=== PATIENT | male | born 1945 | race Asian ===

== ENCOUNTER 2020-05-22 14:08 | Inpatient (IN) | payer OTHER, SELFPAY ==
[~2020-05-22] VITALS: Ht 167.6 cm; Wt 68.0 kg
[2020-05-22] MEDS: ALBUTEROL MDI INHALATION 8 GM INH INH SCH (00:30)
[2020-05-22 14:19] VITALS: BP_SYST 173
[2020-05-22 15:14] LABS: BASOPHILS % (AUTO) 0.2 % (0.0-2.0); HEMATOCRIT 38.2 % (36-54); HEMOGLOBIN 12.4 g/dL (14.0-18.0); LYMPHOCYTES # (AUTO) 0.6 K/uL (1.0-5.5); LYMPHOCYTES % (AUTO) 4.3 % (20.5-51.5); MEAN CORPUSCULAR HEMOGLOBIN 30 pg (27-31); MEAN CORPUSCULAR HGB CONC 33 % (32-36); MEAN CORPUSCULAR VOLUME 91 fL (79.0-98.0); MONOCYTES % (AUTO) 7.8 % (1.7-9.3); NEUTROPHILS # (AUTO) 11.7 K/uL (1.8-7.7); NEUTROPHILS % (AUTO) 87.7 % (40.0-70.0); PLATELET COUNT (AUTO) 359 K/uL (130-430); RED CELL DISTRIBUTION WIDTH 13.8 % (9.0-15.0); WHITE BLOOD COUNT (AUTO) 13.3 K/uL (4.8-10.8)
[2020-05-22 15:20] LABS: ANION GAP 15 (5-15); CALCIUM 8.4 mg/dL (8.4-11.0); CHLORIDE 105 mmol/L (98-107); CREATININE 3.12 mg/dL (0.55-1.30); GLUCOSE 234 mg/dL (70-99); POTASSIUM 4.8 mmol/L (3.5-5.1); SODIUM SERUM 137 mmol/L (136-145); UREA NITROGEN, BLOOD 67 mg/dL (8-21)
[2020-05-22 15:24] LABS: PROTHROMBIN TIME 10.7 SECS (9.5-12.5)
[2020-05-22 15:26] LABS: ALANINE AMINOTRANSFERASE 225 U/L (12-78); ALBUMIN 2.2 g/dL (3.4-4.8); ASPARTATE AMINOTRANSFERASE 192 U/L (10-37); LACTATE DEHYDROGENASE 820 U/L (85-227); TOTAL BILIRUBIN 1.4 mg/dL (0.0-1.0)
[2020-05-22 16:04] LABS: CKMB RELATIVE INDEX 3.1 (0.0-2.9); CREATINE KINASE MB 25.4 ng/mL (0-3.6)
[2020-05-22] MEDS ORDERED: ASPIRIN 81 MG TAB.CHEW PO ONE (16:15)
[2020-05-22] MEDS ORDERED: HEPARIN SODIUM,PORCINE 5,000 UNITS/ML VIAL IVP ONE (16:30)
[2020-05-22] MEDS ORDERED: DEXAMETHASONE SOD PHOSPHATE 4 MG/ML VIAL IVP ONE (16:30)
[2020-05-22] MEDS ORDERED: HEPARIN 25,000 UNITS/D5W 250ML 250 ML IV ONE (16:30)
[2020-05-22 17:19] LABS: C-REACTIVE PROTEIN QUANT 28.5 mg/dL (0-0.5)
[2020-05-22] MEDS ORDERED: FINA5TAB3 PO (17:41)
[2020-05-22] MEDS ORDERED: LABE200T28 PO (17:41)
[2020-05-22] MEDS ORDERED: HYDR-4039 PO (17:41)
[2020-05-22] MEDS ORDERED: GLUXR500 PO (17:41)
[2020-05-22] MEDS ORDERED: ISOS120T8 PO (17:41)
[2020-05-22] MEDS ORDERED: ASPI-1155 PO (17:41)
[2020-05-22] MEDS ORDERED: LIP10 PO (17:41)
[2020-05-22] MEDS ORDERED: LOSA100T3 PO (17:41)
[2020-05-22] MEDS ORDERED: VITD400 PO (17:41)
[2020-05-22] MEDS ORDERED: VERA120C2 PO (17:41)
[2020-05-22] MEDS ORDERED: CAT.2 PO (17:41)
[2020-05-22] MEDS ORDERED: INSULIN LISPRO SLIDING SCALE 100 UNITS/ML VIAL (humaLOG) SUBCUT PRN (17:45)
[2020-05-22] MEDS ORDERED: ACETAMINOPHEN 325 MG TABLET PO PRN (18:45)
[2020-05-22] MEDS ORDERED: NITROGLYCERIN 1 INCH (GM) OINT. TP ONE (18:45)
[2020-05-22] MEDS ORDERED: cefTRIAXone 1 GM VIAL ONE (19:29)
[2020-05-22] MEDS: cefTRIAXone 1 GM in D5W 50 ML IV SCH (19:32)
[2020-05-22] MEDS: AZITHROMYCIN 500 MG in NS 250 ML IV SCH (19:48)
[2020-05-22] MEDS: VERAPAMIL HCL 120 MG TABLET.SA PO SCH (19:49)
[2020-05-22] MEDS: ASCORBIC ACID 500 MG TABLET PO SCH (19:54)
[2020-05-22] MEDS: 0.45% NACL 1,000 ML IV SCH (19:56)
[2020-05-23 01:41] VITALS: BP_SYST 142
[2020-05-23] MEDS: 0.45% NACL 1,000 ML IV SCH ×2 (07:28→21:26)
[2020-05-23 08:28] LABS: BASOPHILS % (AUTO) 0.3 % (0.0-2.0); HEMATOCRIT 34.7 % (36-54); HEMOGLOBIN 11.3 g/dL (14.0-18.0); LYMPHOCYTES # (AUTO) 0.6 K/uL (1.0-5.5); LYMPHOCYTES % (AUTO) 4.2 % (20.5-51.5); MEAN CORPUSCULAR HEMOGLOBIN 29 pg (27-31); MEAN CORPUSCULAR HGB CONC 33 % (32-36); MEAN CORPUSCULAR VOLUME 90 fL (79.0-98.0); MONOCYTES # (AUTO) 0.9 K/uL (0.0-1.0); NEUTROPHILS # (AUTO) 13.3 K/uL (1.8-7.7); NEUTROPHILS % (AUTO) 89.5 % (40.0-70.0); PLATELET COUNT (AUTO) 373 K/uL (130-430); RED BLOOD CELL COUNT(AUTO) 3.86 MIL/uL (4.2-6.2); RED CELL DISTRIBUTION WIDTH 13.9 % (9.0-15.0); WHITE BLOOD COUNT (AUTO) 14.9 K/uL (4.8-10.8)
[2020-05-23] MEDS: ALBUTEROL MDI INHALATION 8 GM INH INH SCH ×3 (08:47→19:35)
[2020-05-23 08:49] LABS: ANION GAP 19 (5-15); CALCIUM 7.9 mg/dL (8.4-11.0); CHLORIDE 109 mmol/L (98-107); CREATININE 2.97 mg/dL (0.55-1.30); GLUCOSE 175 mg/dL (70-99); POTASSIUM 4.7 mmol/L (3.5-5.1); SODIUM SERUM 142 mmol/L (136-145); UREA NITROGEN, BLOOD 78 mg/dL (8-21)
[2020-05-23] MEDS ORDERED: FAMOTIDINE 20 MG TABLET PO SCH (09:00)
[2020-05-23] MEDS ORDERED: ATORVASTATIN 10 MG TABLET PO SCH (09:00)
[2020-05-23] MEDS ORDERED: ASPIRIN 81 MG TAB.CHEW PO SCH (09:00)
[2020-05-23] MEDS ORDERED: LOSARTAN POTASSIUM 50 MG TABLET (COZAAR) PO SCH (09:00)
[2020-05-23] MEDS ORDERED: CHOLECALCIFEROL (VITAMIN D3) 5,000 UNIT TABLET PO SCH (09:00)
[2020-05-23] MEDS ORDERED: FINASTERIDE 5 MG TABLET (PROSCAR) PO SCH (09:00)
[2020-05-23 09:03] LABS: ALANINE AMINOTRANSFERASE 179 U/L (12-78); ASPARTATE AMINOTRANSFERASE 111 U/L (10-37); LACTATE DEHYDROGENASE 666 U/L (85-227); THYROID STIMULATING HORMONE 0.81 uIu/mL (0.36-3.74); TOTAL BILIRUBIN 0.5 mg/dL (0.0-1.0)
[2020-05-23] MEDS ORDERED: METOPROLOL TARTRATE 25 MG TABLET ONE ×2 (10:22→14:01)
[2020-05-23] MEDS ORDERED: ASPIRIN 81 MG TAB.CHEW ONE (10:23)
[2020-05-23] MEDS ORDERED: DECADRON 4 MG TABLET PO ONE (10:30)
[2020-05-23] MEDS: ASCORBIC ACID 500 MG TABLET PO SCH ×2 (11:00→21:25)
[2020-05-23] MEDS: METOPROLOL TARTRATE 50 MG TABLET PO SCH ×2 (11:00→21:25)
[2020-05-23] MEDS: VERAPAMIL HCL 120 MG TABLET.SA PO SCH ×2 (11:00→21:25)
[2020-05-23 11:38] LABS: CLARITY/URINE HAZY (CLEAR); COLOR,URINE YELLOW (YELLOW); GLUCOSE,URINE NEGATIVE (NEGATIVE); KETONES,URINE NEGATIVE (NEGATIVE); PH,URINE 5.5 (5.0-8.0); PROTEIN URINE 3+ (NEGATIVE)
[2020-05-23 11:39] LABS: BACTERIA,URINE FEW /HPF (None Seen); BILIRUBIN,URINE NEGATIVE (NEGATIVE); BLOOD, URINE 2+ (NEGATIVE); LEUKOCYTE ESTERASE ,URINE NEGATIVE (NEGATIVE); NITRITE, URINE NEGATIVE (NEGATIVE); UROBILINOGEN,URINE 0.2 (0.2-1.0)
[2020-05-23 11:40] LABS: HYALINE CASTS, URINE 0-10 /LPF (None Seen); MUCUS,URINE 1+ /LPF (None Seen)
[2020-05-23 12:22] LABS: C-REACTIVE PROTEIN QUANT 20.5 mg/dL (0-0.5)
[2020-05-23] MEDS ORDERED: IVERMECTIN 3 MG TABLET PO ONE (13:15)
[2020-05-23] MEDS ORDERED: *HEPARIN PER PHARMACY XX ONE (13:15)
[2020-05-23] MEDS ORDERED: HEPARIN SODIUM,PORCINE 2000 UNITS/0.4 ML BOLUS IVP PRN (13:30)
[2020-05-23] MEDS ORDERED: HEPARIN SODIUM,PORCINE 3000 UNITS/0.6 ML BOLUS IVP PRN (13:30)
[2020-05-23] MEDS ORDERED: METOPROLOL SUCCINATE 50 MG TAB.SR.24H (TOPROL XL) PO ONE (14:04)
[2020-05-23] MEDS: HEPARIN 25,000 UNITS in 250 ML PREMIX IV PRN (15:09)
[2020-05-23] MEDS ORDERED: hydrALAZINE HCL 25 MG TABLET PO PRN (15:30)
[2020-05-23] MEDS: cefTRIAXone 1 GM in D5W 50 ML IV SCH (21:24)
[2020-05-23] MEDS: AZITHROMYCIN 500 MG in NS 250 ML IV SCH (21:26)
[2020-05-23] MEDS ORDERED: INSULIN Lispro 100 UNITS/ML VIAL (humaLOG) ONE (21:42)
[2020-05-24] MEDS ORDERED: HEPARIN 25,000 UNITS/D5W 250ML 250 ML IV ONE (00:32)
[2020-05-24] MEDS: HEPARIN 25,000 UNITS in 250 ML PREMIX IV PRN (00:46)
[2020-05-24 01:00] VITALS: BP_SYST 95
[2020-05-24] MEDS ORDERED: DECADRON 4 MG TABLET PO SCH (09:00)
[2020-05-24 11:08] LABS: HEPATITIS A AB, IgM Negative (Negative); HEPATITIS B CORE AB, IgM Negative (Negative); HEPATITIS B SURFACE AG Negative (Negative)
[2020-05-24 14:45] LABS: FERRITIN 1592 ng/mL (30-400)
== END 2020-05-24 02:20 | disposition expired | DRG 871 ==
LOC: SED 14:08 → SIC 18:08
PROVIDERS: ADMIT Internal Medicine; ATTEND Internal Medicine
DX: A41.9 Sepsis, unspecified organism (principal); U07.1 COVID-19; J96.01 Acute respiratory failure with hypoxia; N17.0 Acute kidney failure with tubular necrosis; E43 Unspecified severe protein-calorie malnutrition; J12.82 Pneumonia due to coronavirus disease 2019; N18.6 End stage renal disease; I12.0 Hypertensive chronic kidney disease with stage 5 chronic kidney disease or end stage renal disease; D72.810 Lymphocytopenia; E11.22 Type 2 diabetes mellitus with diabetic chronic kidney disease; E11.65 Type 2 diabetes mellitus with hyperglycemia; E78.5 Hyperlipidemia, unspecified; N40.0 Benign prostatic hyperplasia without lower urinary tract symptoms; R74.01 Elevation of levels of liver transaminase levels; Z68.24 Body mass index [BMI] 24.0-24.9, adult; Z99.2 Dependence on renal dialysis
CPT/HCPCS: 36415; 36600; 71045; 80053; 80074; 81000-TC; 82550-TC; 82553-TC; 82728; 82803-TC; 82962; 83615-TC; 83880; 84443-TC; 84484; 85025; 85379; 85384-TC; 85610-TC; 85730-TC; 86140; 86886; 86900; 86901; 87040-TC; 93005; 93306; 94640; 96374; 99285; J0456; J0696; J1100; J1644; J7050; J7060